=== PATIENT | male | born 1955 | race Caucasian/White ===

== ENCOUNTER → 2017-11-29 | Outpatient (CLI) | payer OTHER ==
[~2017-11-29] MED LIST: AMOX1TAB43 PO; FOLI1TAB8 PO; LORA10TA6 PO; LSN20 PO; METH1CHW PO; MULT-506 PO
== END | disposition home or self-care (01) ==
LOC: C.RDSM 13:25
PROVIDERS: ATTEND Physical Medicine & Rehabilitation Sports Medicine
DX: M25.562 Pain in left knee (principal); Z96.659 Presence of unspecified artificial knee joint